=== PATIENT | female | born 1950 | race Caucasian/White ===

== ENCOUNTER 2025-03-26 08:47 | Emergency (ER) | payer OTHER, MEDICARE ==
[~2025-03-26] VITALS: Ht 165.1 cm; Wt 68.0 kg
[2025-03-26] MEDS ORDERED: OxyCODONE 5 mg/Acetamin 325 mg TABLET PO ONE (12:50)
[2025-03-26 13:44] LABS: Alanine Aminotransfer (ALT/SGP 19.0 U/L (12-78); Albumin, Blood 3.5 g/dL (3.4-5.0); Albumin/Globulin Ratio 0.9 (0.8-1.8); Anion Gap 9.0 mmol/L (3-11); Aspartate Aminotrans (AST/SGOT 10.0 U/L (12-37); Bilirubin, Total 0.7 mg/dL (0.1-1.0); Blood Urea Nitrogen 19.0 mg/dL (8-24); CO2, Blood 26.0 mmol/L (21-32); Calcium, Blood 9.3 mg/dL (8.5-10.1); Chloride, Blood 108.0 mmol/L (98-108); Creatinine, Blood 0.83 mg/dL (0.40-1.00); Globulin, Blood 3.8 g/dL (2.2-4.0); Glucose, Blood 162.0 mg/dL (70-99); Potassium, Blood 3.5 mmol/L (3.5-5.5); Sodium, Blood 139.0 mmol/L (136-145); Total Protein, Blood 7.3 g/dL (6.4-8.2)
[2025-03-26] MEDS ORDERED: Methyl Salicylate/Menth/Camph 57 GM TUBE TOP ONE (14:25)
[2025-03-26] MEDS ORDERED: Ketorolac Tromethamine 30mg Vial IM ONE (14:25)
[2025-03-26] MEDS ORDERED: Percocet 5-3251 EACH PO (16:00)
== END 2025-03-26 16:18 | disposition home or self-care (01) ==
LOC: ER 08:47
PROVIDERS: Student in an Organized Health Care Education/Training Program
DX: M17.0 Bilateral primary osteoarthritis of knee (principal); D48.0 Neoplasm of uncertain behavior of bone and articular cartilage; M11.262 Other chondrocalcinosis, left knee; M71.21 Synovial cyst of popliteal space [Baker], right knee
CPT/HCPCS: 73562-LT; 73562-RT; 80053; 82330; 93971; 96372; 99284-25; A9270; J1885